=== PATIENT | female | born 1955 | race African-American/Black ===

== ENCOUNTER → 2018-03-14 | Outpatient (CLI) | payer BC, OTHER ==
[~2018-03-14] MED LIST: AMOXICILLIN 50500 M1 PO; ASPIRIN EC81 M1 PO; HYDROCHLOROTHIA25 M2 PO; VENTOLIN HFA 1818 GM INH; VITAMIN D400 UNI1 PO; ZYRTEC10 MG PO
== END ==
LOC: NUC 03-10 09:48
DX: R07.2 Precordial pain (principal)